=== PATIENT | female | born 1995 | race African-American/Black ===

== ENCOUNTER 2017-01-31 01:27 | Emergency (ER) | payer MEDICAID ==
[~2017-01-31] VITALS: Ht 165.1 cm; Wt 76.0 kg
[2017-01-31] MEDS ORDERED: IBUPROFEN 600MG TABLET PO ONE (05:00)
[2017-01-31 05:36] VITALS: BP 103/66
== END 2017-01-31 05:52 | disposition home or self-care (01) ==
LOC: ER 01:27
DX: M54.5 Low back pain (principal); F17.200 Nicotine dependence, unspecified, uncomplicated; F12.10 Cannabis abuse, uncomplicated; V49.50XA Passenger injured in collision with unspecified motor vehicles in traffic accident, initial encounter; Y93.89 Activity, other specified; Y92.89 Other specified places as the place of occurrence of the external cause; Y99.8 Other external cause status
CPT/HCPCS: 81025; 99283; Z7610